=== PATIENT | male | born 1965 | race Caucasian/White ===

== ENCOUNTER 2017-03-22 10:02 | Inpatient (IN) | payer OTHER ==
[~2017-03-22 10:02] MED LIST: BUPIVACAINE 0.5% 30 ML SDV ONE
[2017-03-22] MEDS ORDERED: LR 1,000 ML IV ONE (10:37)
[2017-03-22] MEDS ORDERED: levOFLOXACIN 500 MG/DEXTROSE 100 ML IV ONE (10:45)
[2017-03-22 10:49] LABS: PLATELET COUNT 217 10^3/uL (150-400)
--- NOTE | 2017-03-22 10:57 | CPEKG ---
Heart Rate: 82 RR Interval: 732 P-R Interval: 184 QRSD Interval: 84 QT Interval: 364 QTC Interval: 425 P Solvang: 47 QRS Solvang: 4 T Wave Solvang: 32 EKG Severity - NORMAL ECG - EKG Impression: SINUS RHYTHM Electronically Signed By: Layo Irby 27-Mar-2017 10:26:46
[2017-03-22 10:58] LABS: INR 0.97 (0.83-1.16); PROTIME(PATIENT) 13.1 SEC (12.0-15.0)
[2017-03-22] MEDS ORDERED: MIDAZOLAM 2 MG/2 ML VIAL IVP ONE ×2 (11:58→12:15)
--- NOTE | 2017-03-22 12:05 | PDANEPAE ---
ANE History of Present Illness DaVinci Assisted Prostatectomy ANE Past Medical History - Cardiovascular History Hx Hypertension: No Hx Arrhythmias: No Hx Chest Pain: No Hx Coronary Artery / Peripheral Vascular Disease: No Hx CHF / Valvular Disease: No Hx Palpitations: No - Pulmonary History Hx COPD: No Hx Asthma/Reactive Airway Disease: No Hx Recent Upper Respiratory Infection: No Hx Oxygen in Use at Home: No Hx Sleep Apnea: No Sleep Apnea Screening Result - Last Documented: Negative - Neurologic History Hx Cerebrovascular Accident: No Hx Seizures: No Hx Dementia: No - Endocrine History Hx Diabetes: No - Renal History Hx Renal Disorders: No - Liver History Hx Hepatic Disorders: No - Neurological & Psychiatric Hx Hx Neurological and Psychiatric Disorders: Yes Neurological / Psychiatric History Comment: anxiety - Cancer History Hx Cancer: Yes Cancer History Comment: prostate - Congenital Disorder History Hx Congenital Disorders: No - GI History Hx Gastrointestinal Disorders: Yes Gastrointestinal History Comment: IBS DIARRHEA - Other Health History Other Health History: NONE - Chronic Pain History Chronic Pain: Yes (LOWER BACK) - Surgical History Prior Surgeries: colonoscopy x 2 ANE Review of Systems Review of Systems: - Exercise capacity METS (RN): 5 METS ANE Patient History - Allergies Allergies/Adverse Reactions: No Known Allergies Allergy (Verified 02/24/17 10:25) - Home Medications Home medications: home medication list seen and reviewed Home Medications: Ibuprofen [Motrin (*)] 200 mg PO DAILY PRN 02/17/17 [Last Taken 1 Week Ago ~11/22] Loperamide HCl [Imodium 2 mg (*)] 2 mg PO PRN PRN 02/17/17 [Last Taken 03/18/17] Naproxen Sodium [Aleve 220 MG (*)] 220 mg PO BID PRN 02/17/17 [Last Taken 1 Week Ago ~03/15/17] - NPO status NPO Since - Liquids (Date): 03/22/17 NPO Since - Liquids (Time): 08:30 NPO Since - Solids (Date): 03/21/17 NPO Since - Solids (Time): 12:00 - Anes Hx Anes Hx: no prior problems - Smoking Hx Smoking Status: Never smoked - Alcohol Use Alcohol Use: Occasionally - Family Anes Hx Family Anes Hx: none Family Hx Anesthesia Complications: none ANE Labs/Vital Signs - Labs Result Diagrams: 03/22/17 10:35 01/16/18 10:35 - Vital Signs Blood Pressure: 139/91 Heart Rate: 83 Respiratory Rate: 18 O2 Sat (%): 96 Height: 185.42 cm Weight: 88.451 kg ANE Physical Exam - Airway Neck exam: FROM Mallampati Score: Class 1 Mouth exam: normal dental/mouth exam - Pulmonary Pulmonary: no respiratory distress - Cardiovascular Cardiovascular: regular rate and rhythym - ASA Status ASA Status: I ANE Anesthesia Plan Anesthesia Plan: general endotracheal anesthesia (R/B/A explained and patient agrees)
[2017-03-22] MEDS ORDERED: NAPROXEN SODIUM 220 MG TAB PO PRN (13:05)
[2017-03-22] MEDS ORDERED: IBUPROFEN 200 MG TAB PO PRN (13:05)
[2017-03-22] MEDS ORDERED: LOPERAMIDE HCL 2 MG CAP PO PRN (13:05)
--- NOTE | 2017-03-22 13:06 | PDHPUP ---
History & Physical Update H&P update statement: This history and physical update is based on an assessment of the patient which was completed after admission or registration (within 24 hours), but prior to the surgery/procedure. H&P update: H&P reviewed & patient examined, no change in patient's condition since H&P completed
[2017-03-22] MEDS ORDERED: ONDANSETRON 4 MG/2 ML VIAL ONE ×2 (13:13→19:48)
[2017-03-22] MEDS ORDERED: PROPOFOL/EMULSION 500 MG/50 ML BOTTLE IV ONE ×3 (13:13→16:51)
[2017-03-22] MEDS ORDERED: fentaNYL 100 MCG/2 ML INJ ONE ×4 (13:13→20:39)
[2017-03-22] MEDS ORDERED: ROCURONIUM 50 MG/5 ML VIAL ONE ×3 (13:13→16:06)
[2017-03-22] MEDS ORDERED: DEXAMETHASONE 4 MG/ML VIAL ONE (13:13)
[2017-03-22] MEDS ORDERED: LIDOCAINE 2% 100 MG/5 ML SYR ONE (13:14)
[2017-03-22] MEDS ORDERED: THROMBIN(HUM PLAS)/FIBRINOG/CA 5 ML VIAL TP ONE (17:07)
[2017-03-22] MEDS ORDERED: KETOROLAC 30 MG/1 ML SDV ONE (18:23)
[2017-03-22] MEDS ORDERED: BUPIVACAINE 0.25% 30 ML SDV ONE (18:24)
[2017-03-22] MEDS ORDERED: SUGAMMADEX SODIUM 200 MG/2 ML VIAL IVP ONE (18:25)
[2017-03-22] MEDS ORDERED: ONDANSETRON 4 MG/2 ML VIAL IVP PRN (18:51)
[2017-03-22] MEDS ORDERED: ACETAMINOPHEN 500 MG TAB PO PRN (18:51)
[2017-03-22] MEDS ORDERED: PROMETHAZINE HCL 25 MG/ML INJ IVP PRN (18:51)
[2017-03-22] MEDS ORDERED: PHENYLEPHRINE HCL 100 MCG/ML SYR IVP PRN (18:51)
[2017-03-22] MEDS ORDERED: HYDROCODONE/APAP 5/325 TAB PO PRN (18:51)
[2017-03-22] MEDS ORDERED: METOCLOPRAMIDE 10 MG/2 ML VIAL IVP PRN (18:51)
[2017-03-22] MEDS ORDERED: DIAZEPAM 10 MG/2 ML SYR IVP PRN (18:51)
[2017-03-22] MEDS ORDERED: ALBUTEROL 3 ML DEYVIAL IH PRN (18:51)
[2017-03-22] MEDS ORDERED: OXYCODONE/APAP 5/325 TAB PO PRN (18:51)
[2017-03-22] MEDS ORDERED: MEPERIDINE 25 MG/ML SYR IVP PRN (18:51)
[2017-03-22] MEDS ORDERED: DEXAMETHASONE 4 MG/ML VIAL IVP PRN (18:51)
[2017-03-22] MEDS ORDERED: LR 500 ML IV PRN (18:51)
[2017-03-22] MEDS ORDERED: NALOXONE HCL 0.4 MG/ML INJ IVP PRN (18:51)
[2017-03-22] MEDS ORDERED: LABETALOL HCL 5 MG/ML 20 ML MDV IVP PRN (18:51)
--- NOTE | 2017-03-22 19:59 | POSTOPPROG ---
Post Op Note Date of Operation: 03/22/17 Surgeon: Layo Evans Valving Machine Operator: Liliana Harmon SA Anesthesiologist: Edward Mccracken MD Anesthesia: GET(General Endotracheal) Pre-op Diagnosis: prostate cancer - Gl 7 Post-op Diagnosis: same Indication: as above Procedure: robotic radical retropubic prostatectomy and BPLND Inf/Abcess present in the surg proc area at time of surgery?: Yes Depth: Organ Space EBL: 50-100
[2017-03-22] MEDS ORDERED: ACETAMINOPHEN 325 MG TAB PO PRN (20:04)
[2017-03-22] MEDS: fentaNYL 100 MCG/2 ML INJ IVP PRN ×3 (20:06→20:42)
--- NOTE | 2017-03-22 21:14 | POSTANESTH ---
Post Anesthetic Evaluation Cardiovascular Status: Normal, Stable Respiratory Status: Normal, Stable Level of Consciousness/Mental Status: Can Participate in Eval, Mildly Sleepy, Arousable Pain Control: Inadeq, Add Tx Required Nausea/Vomiting Control: Adequate, Prn Tx Ordered Complications Possibly Related to Anesthesia: None Noted
[2017-03-22] MEDS: KETOROLAC 15 MG/1 ML SDV IVP SCH (23:49)
[2017-03-23 05:47] LABS: PLATELET COUNT 210 10^3/uL (150-400)
[2017-03-23] MEDS: KETOROLAC 15 MG/1 ML SDV IVP SCH ×4 (06:02→23:51)
[2017-03-23] MEDS ORDERED: NS 1,000 ML IV SCH (10:00)
[2017-03-23] MEDS: LORazepam 2 MG/ML INJ IVP PRN ×3 (11:02→23:58)
[2017-03-23] MEDS: ONDANSETRON 4 MG/2 ML VIAL IVP PRN ×2 (11:02→17:27)
[2017-03-23] MEDS: HYDROCODONE/APAP 5/325 TAB PO PRN ×2 (11:02→17:26)
--- NOTE | 2017-03-23 15:19 | ASMTCMCOM ---
CM Note CM Note Notes: Anticipate pt will DC with no needs. Date Signed: 03/23/2017 03:18 PM Electronically Signed By:Marti Rivera LCSW
--- NOTE | 2017-03-23 17:13 | GOP ---
[f rep st] OPERATIVE REPORT DATE OF OPERATION: SURGEON: Layo Evans MD RESAW CARRIAGE OPERATOR: Yajaira Mi [facility], surgical scrub technician. PREOPERATIVE DIAGNOSIS: Prostate cancer, Aline 7. POSTOPERATIVE DIAGNOSIS: Prostate cancer, Aline 7. PROCEDURE PERFORMED: Bilateral nerve-sparing robotic radical retropubic prostatectomy laparoscopic with followup pelvic lymph node dissection laparoscopic on 03/22/2017. FINDINGS: SPECIMENS: Multiple frozen sections sent all negative for cancer. Prostate and seminal vesicles sent to Pathology for analysis. Left and right pelvic lymph node dissection sent to Pathology for analysis. Periprostatic fat sent to Pathology for analysis. ESTIMATED BLOOD LOSS: 100 cc. INDICATIONS: The patient is a very pleasant 51-year-old male with Aline 7 prostate cancer. After a long discussion of the risks, benefits, and alternatives, he has consented to the above procedure and brought to the operating room for this operative procedure. DESCRIPTION OF PROCEDURE: The patient was identified by name, medical record number, wrist band, and was brought to the operating room, set on the table, and prepped and draped in a standard surgical fashion. Placed in lithotomy position. Robot ports were placed by accessing the abdomen with a Veress needle atraumatically. We placed our ports into the abdomen in our standard anatomic manner under direct visualization atraumatically. There were multiple adhesions in the abdomen, and a lysis of adhesions was performed as well initially out of the operative procedure above. These were taken down atraumatically. We then placed our ports, docked the robot by placing the patient in 22 degrees head- down, followed by the robot docking and inserted all ports and began by taking the colon down along the white line of Toldt, bringing the colon out of the pelvis, making an incision 1 cm above the reflection of the peritoneum, dissecting down upon the vas and seminal vesicle bilaterally. We dissected these athermally without cautery. Placed Weck clips on the tips. These clips were then maintained on top. The anterior and posterior vas seminal vesicles were dissected. Denonvilliers fascia was opened and dissected down to the level of the urethra and the apex of the prostate and then laterally as well to assist with dissection of the nerves. We then went anteriorly to the bladder down along the medial umbilical ligaments, the Jason ligament. I identified a complex dorsal vein venous complex. The puboprostatic ligaments as well as the pillars of the prostate were taken down and after incising the endopelvic fascia bilaterally along the prostate, reflecting the levator muscle, and then we placed an 0 Vicryl in the dorsal venous complex of the notch between the dorsal venous complex and the urethra. We then turned attention to the bladder neck, incised down through this, preserving the bladder neck with a wider resection on the right. We sent multiple frozen sections. Result came back negative for prostate cancer, most negative for prostate tissue, and as we came down through, we had the clear margins according to our frozen sections. We incised the urethral fibers, brought the catheter anteriorly, and then finished the posterior bladder neck and came down through this between the prostate and the bladder fibers and identified the seminal vesicles of the vas, brought these through the point above the posterior bladder neck and then completed our bladder neck dissection. We then performed an intrafascial nerve sparing on the left side and a robust nerve sparing on the right side with the wider margins on the right due to the MRI noted right tumor. We took this down to the level of the apex. We reflected these and then turned posteriorly, dissecting out the seminal vesicle along the base, reflected the neurovascular bundles away. We then carefully dissected down to clear neurovascular bundle proceeding to clear neurovascular bundle with the pedicles coming medially, and we placed the Weck clip on the clear pedicles bilaterally. We then dissected posteriorly to ensure there was no bleeding once mobilized and came anteriorly through the dorsal venous complex and the urethral fibers until the prostate was completely mobile and passed off the field. We performed a V-Loc suture to reconstruct the rectourethralis muscle with 4 throws and then the 3-0 Monocryls x2 were connected and we performed a 15-suture anastomosis of the vesicourethral anastomosis. We placed a fresh Maradiaga catheter with 20 cc in the balloon, irrigated, and there was no leak noted. Placed Evicel, performed a pelvic lymph node dissection laparoscopically with node of Ambler, pelvic sidewall, obturator nerve, the bifurcation of the iliacs, the iliac vein from the Jason ligament as the margins of each on the left and right side were sent off separately bilaterally and sent to Pathology for analysis. At the end of the procedure, we noted no bleeding. A TYSON drain was placed. The prostate was placed in a bag and brought out through the camera port. We closed our 12 port through the fascial closure device under direct visualization. The drain was sutured into place. The prostate was brought out through a lateral incision of the umbilical port, passed off the field. It was inspected and a gross inspection noted the good nerve-sparing and no disruption of the capsule. At the end of the procedure, TYSON drain was irrigating pink and we irrigated our skin copiously , closed with 4-0 Monocryl, and the dressings were applied. The patient was awakened from anesthesia and brought to the recovery room in stable condition. DRAINS: TYSON drain, 18-Slovenian Maradiaga catheter with 20 cc in the balloon. URINE OUTPUT: 220 cc. See anesthesia record for specifics. IV FLUIDS: See anesthesia record. COMPLICATIONS: None. /[id number]/MODL MTDD
[2017-03-24 05:14] VITALS: RESP 16
[2017-03-24] MEDS: HYDROCODONE/APAP 5/325 TAB PO PRN ×2 (05:15→14:41)
[2017-03-24] MEDS: KETOROLAC 15 MG/1 ML SDV IVP SCH ×2 (05:15→11:48)
[2017-03-24] MEDS: LORazepam 2 MG/ML INJ IVP PRN (05:15)
[2017-03-24 06:07] LABS: PLATELET COUNT 139 10^3/uL (150-400)
[2017-03-24 10:10] VITALS: BP 121/82; PULSE 108; TEMP 98; O2SAT 92
--- NOTE | 2017-03-24 14:03 | SOAPPROG ---
JUAN Progress Note Assessment/Plan: Assessment: Prostate cancer Acute POD #2 Plan: DC home, follow up with Dr. Evans in 10 days 03/24/17 15:13 Subjective: doing well Objective: Vital Signs Temp Pulse Resp BP Pulse Ox 36.6 C 108 H 16 121/82 H 92 03/24/17 10:06 03/24/17 10:06 03/24/17 10:06 03/24/17 10:06 03/24/17 10:06 Laboratory Results 03/24/17 05:00 03/24/17 05:00 03/23/17 03/24/17 03/25/17 05:59 05:59 05:59 Intake Total 3650 2605 Output Total 820 1410 40 Balance 2830 1195 -40 PT 13.1 SEC (12.0-15.0) 03/22/17 10:35 INR 0.97 (0.83-1.16) 03/22/17 10:35 Physical Exam - Physical Exam General Appearance: alert Respiratory: No respiratory distress Cardiac/Chest: regular rate, rhythm Abdomen: soft Back: No CVA tenderness Extremities: No calf tenderness, No Franco's sign Neuro/Psych: alert, oriented x 3 ICD10 Worksheet Patient Problems: Problems Problem Status Onset Prostate cancer Acute - ICD10 Problem Qualifiers (1) Prostate cancer
[2017-03-24] MEDS: ONDANSETRON 4 MG/2 ML VIAL IVP PRN (14:41)
[2017-03-24] MEDS ORDERED: LORazepam 1 MG TAB PO PRN (15:09)
--- NOTE | 2017-03-24 15:32 | GDS ---
[f rep st] DISCHARGE SUMMARY ADMISSION DIAGNOSIS: Prostate cancer. DISCHARGE DIAGNOSIS: Prostate cancer. PROCEDURE DURING HOSPITALIZATION: Robotic assisted radical prostatectomy. HOSPITAL COURSE: This gentleman on the a.m. of admission had the above procedure performed. He is d ischarged home with a catheter in place, on Ativan, Vicodin, and Mylanta, and to have followup in the office with Dr. Antonio 1 week from Tuesday. He has been instructed on postoperative issues of ambula tion to prevent blood clots, bowel problems and lung problems, and offered to consider subcutaneous a nticoagulation and prevention of that and he has elected not to undergo that treatment and he said to undergo the above procedure. /[id number]/MODL
--- NOTE | 2017-03-24 16:23 | ASDISCHSUM ---
Discharge Information Plan Status: Medically Cleared to Leave: Discharge Date:03/24/2017 04:14 PM CM D/C Disposition: ADT D/C Disposition:Home, Routine, Self-Care Projected Discharge Date:03/24/2017 04:14 PM Transportation at D/C: Discharge Delay Reason: Follow-Up Date:03/24/2017 04:14 PM Discharge Slot: Final Diagnosis: Placement Information Patient Contact Information Contact Name:CAMILO Relationship: Address:[address] City:[place] Alternate Phone: State/Zip Code:[place] [address] Email: Financial Information Financial Class:HMO and PPO Plans Primary Plan Desc:[facility] Primary Plan Number:[id number] Secondary Plan Desc: Secondary Plan Number: Assessment Information [facility] CM Progress Note CM Note CM Note Notes: Anticipate pt will DC with no needs. Date Signed: 03/23/2017 03:18 PM Electronically Signed By:Marti Rivera LCSW Intervention Information
[2017-03-28] MEDS ORDERED: NAPROXEN SODIUM 220 MG TAB PO PRN (09:00)
== END 2017-03-24 16:14 | disposition home or self-care (01) | DRG 708 ==
LOC: F3E 10:02 → F1N 10:56
PROVIDERS: ADMIT Urology; ATTEND Urology
DX: C61 Malignant neoplasm of prostate (principal); F41.9 Anxiety disorder, unspecified
CPT/HCPCS: 97161-GP; J0171; J1100; J1885; J1956; J2001; J2060; J2250; J2370; J2405; J2704; J3010